=== PATIENT | female | born 1950 | race Asian ===

== ENCOUNTER 2020-06-21 00:32 | Inpatient (IN) | payer MEDICARE, OTHER ==
[~2020-06-21] VITALS: Ht 162.6 cm; Wt 68.0 kg
[2020-06-21 09:00] VITALS: BP 160/88
--- NOTE | 2020-06-21 09:00 | NUR ---
GPS/RN PT RECEIVED DIRECT ADMIT ON 515 HOLD FOR GD. AMBULATORY BRITISH/TAGALOG SPEAKING. DISORGANIZED AND CONFUSED/POOR HISTORIAN. ORIGINALLY FROM [facility] APART[facility]. PROPERTY CHECKED FOR CONTRABAND. NO SI OR HI AT THE TIME OF ADMISSION.VSS. SKIN CLEAR. ADMITTING ORDERS FROM DR MORRISON RECEIVED AND CARRIED OUT.
[2020-06-21] MEDS ORDERED: BLOOD SUGAR DIAGNOSTIC 1 EACH STRIP IN ONE (09:30)
[2020-06-21] MEDS ORDERED: MAGNESIUM HYDROXIDE 30 ML UDC PO PRN (09:30)
[2020-06-21] MEDS ORDERED: MAG HYDROX/AL HYDROX/SIMETH 30 ML UDC PO PRN (09:30)
[2020-06-21] MEDS ORDERED: ACETAMINOPHEN 325 MG TABLET PO PRN (09:30)
[2020-06-21] MEDS ORDERED: RISP3TAB14 PO (09:41)
[2020-06-21] MEDS ORDERED: MIRT15TA7 PO (09:41)
[2020-06-21] MEDS ORDERED: CHOL10002 PO (09:41)
[2020-06-21] MEDS ORDERED: DICL100G34 TP (09:41)
[2020-06-21] MEDS ORDERED: CLON1TAB12 PO (09:41)
[2020-06-21] MEDS ORDERED: ASPI-1420 PO (09:41)
[2020-06-21] MEDS ORDERED: SITA100T PO (09:41)
[2020-06-21] MEDS ORDERED: IRBE150T28 PO (09:41)
[2020-06-21] MEDS ORDERED: MECL-182 PO (09:41)
[2020-06-21] MEDS ORDERED: GLIP5TAB13 PO (09:41)
[2020-06-21] MEDS ORDERED: LEVO88TA5 PO (09:41)
[2020-06-21] MEDS ORDERED: METF-442 PO (09:41)
[2020-06-21] MEDS ORDERED: DIVA-78 PO (09:41)
[2020-06-21] MEDS ORDERED: AMLO10TA7 PO (09:41)
[2020-06-21] MEDS ORDERED: BENZ0.5T43 PO (09:41)
--- NOTE | 2020-06-21 10:10 | NUR ---
GPS/RN DR MCMILLAN MADE AWARE OF NEW ADMISSION. MEDS ARE READY TO RECONCILE
[2020-06-21 16:00] VITALS: BP 146/77
[2020-06-21] MEDS: risperiDONE 1 MG TABLET PO SCH (16:42)
[2020-06-21] MEDS: BENZTROPINE MESYLATE (1 MG) 1 MG TABLET PO SCH (16:42)
[2020-06-21] MEDS: LORAZEPAM 0.5 MG TABLET PO PRN (16:42)
[2020-06-21] MEDS ORDERED: DEXTROSE 50%-WATER 50 ML DISP.SYRIN IV PRN (18:30)
[2020-06-21 20:16] VITALS: BP 166/91
[2020-06-21] MEDS: DIVALPROEX SODIUM 500 MG TABLET.DR PO SCH (21:48)
[2020-06-21] MEDS: BLOOD SUGAR DIAGNOSTIC 1 EACH STRIP IN SCH (22:15)
[2020-06-21] MEDS: INSULIN REGULAR, HUMAN 100 UNIT/ML 3 ML VIAL SQ PRN (22:18)
[2020-06-21] MEDS: TEMAZEPAM 7.5 MG CAPSULE PO PRN (23:03)
--- NOTE | 2020-06-21 23:12 | NUR ---
GPS RN NOTE: BLOOD SUGAR 204MG/DL AT 2200. 4 UNITS OF REGULAR INSULIN ADMINISTERED PER SLIDING SCALE ORDER. WILL CONTINUE TO MONITOR.
--- NOTE | 2020-06-21 23:14 | NUR ---
GPS RN NOTE: PT REQUESTED FOR SLEEPING MEDICATION DUE TO INSOMNIA. RESTORIL 7.5MG 1 TAB GIVEN PO ORDERED AT 2303. WILL CONTINUE TO MONITOR
[2020-06-22] MEDS: BLOOD SUGAR DIAGNOSTIC 1 EACH STRIP IN SCH (07:37)
[2020-06-22] MEDS: INSULIN REGULAR, HUMAN 100 UNIT/ML 3 ML VIAL SQ PRN ×3 (07:43→21:47)
[2020-06-22 08:00] VITALS: BP 155/87
[2020-06-22] MEDS: LEVOTHYROXINE SODIUM 88 MCG TABLET PO SCH (08:06)
[2020-06-22] MEDS: risperiDONE 1 MG TABLET PO SCH ×2 (08:07→16:57)
[2020-06-22] MEDS: DIVALPROEX SODIUM 500 MG TABLET.DR PO SCH ×2 (08:07→21:37)
[2020-06-22] MEDS: BENZTROPINE MESYLATE (1 MG) 1 MG TABLET PO SCH ×2 (08:07→16:57)
[2020-06-22] MEDS: METFORMIN 500 MG TABLET PO SCH ×2 (08:11→16:57)
[2020-06-22] MEDS: ASPIRIN EC 81 MG TABLET.DR PO SCH (08:11)
[2020-06-22] MEDS: glipiZIDE 5 MG TABLET PO SCH ×2 (08:11→16:57)
[2020-06-22] MEDS: LOSARTAN POTASSIUM 50 MG TABLET PO SCH (08:12)
[2020-06-22] MEDS: AMLODIPINE BESYLATE 10 MG TABLET PO SCH (08:12)
[2020-06-22] MEDS: LINAGLIPTIN 5 MG TABLET PO SCH (08:12)
[2020-06-22] MEDS ORDERED: DICLOFENAC TOPICAL 100 GM GEL..GM. TP SCH (09:00)
[2020-06-22] MEDS ORDERED: BENZTROPINE MESYLATE (1 MG) 1 MG TABLET PO SCH (09:00)
--- NOTE | 2020-06-22 09:00 | NUR ---
RN NOTE-PT NEEDY INTRUSIVE BLUNTED AFFECT SLOW TO SPEAK INITIATES BUT HAS DIFFICULTY FOLLOWING CONVERSATION DISORGANIZED AND WARY. DENIES SI HI AH VH PO INTAKE GOOD MED COMPLIANT
[2020-06-22 09:16] LABS: ALBUMIN 3.6 g/dL (3.4-5.0); BILIRUBIN,TOTAL 0.4 mg/dL (0.2-1.0); CALCIUM, SERUM 8.6 mg/dL (8.5-10.1); CREATININE 0.8 mg/dL (0.6-1.3); POTASSIUM 4.3 mmol/L (3.5-5.1); TOTAL PROTEIN, SERUM 6.6 g/dL (6.4-8.2)
[2020-06-22 09:23] LABS: THYROID STIMULATING HORMONE 6.203 uIU/mL (0.358-3.74)
[2020-06-22] MEDS: BLOOD SUGAR DIAGNOSTIC 1 EACH STRIP VI SCH ×3 (11:51→21:41)
[2020-06-22] MEDS ORDERED: DEXTROSE 50%-WATER 50 ML DISP.SYRIN IV PRN (12:00)
[2020-06-22 15:48] VITALS: BP 117/73
[2020-06-22 19:50] VITALS: BP 152/76
[2020-06-22] MEDS: TEMAZEPAM 7.5 MG CAPSULE PO PRN (21:38)
--- NOTE | 2020-06-22 21:49 | NUR ---
Pt c/o insomnia. Least restrictive measures ineffective. Restoril 7.5 mg po prn given as ordered. Will continue to monitor.
--- NOTE | 2020-06-22 22:43 | NUR ---
Post 1 hr Restoril effective. Pt asleep in bed easy to arouse.
[2020-06-23] MEDS: BLOOD SUGAR DIAGNOSTIC 1 EACH STRIP VI SCH ×4 (07:34→21:28)
[2020-06-23] MEDS: LEVOTHYROXINE SODIUM 88 MCG TABLET PO SCH (07:34)
[2020-06-23] MEDS: INSULIN REGULAR, HUMAN 100 UNIT/ML 3 ML VIAL SQ PRN ×2 (07:38→11:48)
[2020-06-23 08:00] VITALS: BP 139/70
[2020-06-23] MEDS: LINAGLIPTIN 5 MG TABLET PO SCH (08:16)
[2020-06-23] MEDS: METFORMIN 500 MG TABLET PO SCH ×2 (08:16→16:28)
[2020-06-23] MEDS: risperiDONE 1 MG TABLET PO SCH ×2 (08:16→16:28)
[2020-06-23] MEDS: glipiZIDE 5 MG TABLET PO SCH ×2 (08:16→16:28)
[2020-06-23] MEDS: AMLODIPINE BESYLATE 10 MG TABLET PO SCH (08:16)
[2020-06-23] MEDS: BENZTROPINE MESYLATE (1 MG) 1 MG TABLET PO SCH ×2 (08:16→16:27)
[2020-06-23] MEDS: DIVALPROEX SODIUM 500 MG TABLET.DR PO SCH ×2 (08:16→21:28)
[2020-06-23] MEDS: ASPIRIN EC 81 MG TABLET.DR PO SCH (08:16)
[2020-06-23] MEDS: LOSARTAN POTASSIUM 50 MG TABLET PO SCH (08:17)
--- NOTE | 2020-06-23 09:00 | NUR ---
RN NOTE- PT FEARFUL, PARANOIA INCREASED BLUNTED AFFECT SLOW TO SPEAK INITIATES BUT HAS DIFFICULTY FOLLOWING CONVERSATION DISORGANIZED AND WARY. DENIES SI HI AH VH PO INTAKE GOOD MED COMPLIANT DR MORRISON NOTIFIED AND SAW PT
--- NOTE | 2020-06-23 14:26 | NUR ---
Family Contact: SW called the pts sister, Rolanda ([phone]), who stated that the pt's other sister, Marta. She stated that she would give the SW's number.
--- NOTE | 2020-06-23 14:42 | NUR ---
Family Contact: Pts sister, Marta Fernandez ([phone]), called the SW and stated that she wanted an update regarding how the pt is doing. SW stated that the pt appears to be paranoid and needs to become stable with medications. Pts sister stated that she does not feel comfortable with the pt returning home when she lives by herself. SW stated that the SW can speak to the MD and plan for a discharge to a SNF if the family and the pt agree.
--- NOTE | 2020-06-23 15:10 | NUR ---
Group Note: SW invited patient to participate in group therapy to discuss the topic of Problem Solving. Patient did not want to engage at this time and was resting in bed.
[2020-06-23 16:00] VITALS: BP 150/82
--- NOTE | 2020-06-23 16:07 | NUR ---
Initial Discharge Plan: Pt currently resides in her apartment alone located at [address] [place] [address]; ([phone]). Per pt, she would like to return to her home. Per pts sister, Marta ([phone]), the family is considering a SNF. SW will work with the pt and the MD regarding appropriate discharge planning. SW will form a safe and proper discharge.
[2020-06-23] MEDS: *INSULIN REGULAR(HUMULIN R)HUM 100 UNIT/ML VIAL SQ PRN ×2 (17:25→21:32)
[2020-06-23 19:48] VITALS: BP 151/60
[2020-06-23] MEDS: LORAZEPAM 0.5 MG TABLET PO PRN (20:29)
--- NOTE | 2020-06-23 20:33 | NUR ---
RN NOTES: ANXIETY/AGITATION PATIENT IS AGITATED,PACING IN HALLWAY ANXIOUS, PARANOID,RESTLESS, DELUSIONAL HYPERVERBAL AT THIS TIME, . NOT FOLLOWING ANY REDIRECTIONS ,PRN ATIVAN 0.5 MG , PO GIVEN, WILL CONTINUE TO MONITOR.
[2020-06-23 22:00] VITALS: BP 130/65
[2020-06-24] MEDS: BLOOD SUGAR DIAGNOSTIC 1 EACH STRIP VI SCH ×4 (07:17→23:13)
[2020-06-24] MEDS: INSULIN REGULAR, HUMAN 100 UNIT/ML 3 ML VIAL SQ PRN ×2 (07:20→17:36)
[2020-06-24] MEDS: LEVOTHYROXINE SODIUM 88 MCG TABLET PO SCH (07:41)
[2020-06-24 08:00] VITALS: BP 148/76
[2020-06-24] MEDS: METFORMIN 500 MG TABLET PO SCH ×2 (08:49→16:12)
[2020-06-24] MEDS: LOSARTAN POTASSIUM 50 MG TABLET PO SCH (08:49)
[2020-06-24] MEDS: LINAGLIPTIN 5 MG TABLET PO SCH (08:49)
[2020-06-24] MEDS: ASPIRIN EC 81 MG TABLET.DR PO SCH (08:49)
[2020-06-24] MEDS: BENZTROPINE MESYLATE (1 MG) 1 MG TABLET PO SCH ×2 (08:49→16:12)
[2020-06-24] MEDS: DIVALPROEX SODIUM 500 MG TABLET.DR PO SCH ×2 (08:49→20:43)
[2020-06-24] MEDS: glipiZIDE 5 MG TABLET PO SCH ×2 (08:50→16:12)
[2020-06-24] MEDS: AMLODIPINE BESYLATE 10 MG TABLET PO SCH (08:50)
[2020-06-24] MEDS: risperiDONE 1 MG TABLET PO SCH ×2 (08:50→16:12)
--- NOTE | 2020-06-24 09:00 | NUR ---
RN NOTE- PT FEARFUL, PARANOID WANDERING UNIT REQUESTING PHONE . CONFUSED. NEEDY PO INTAKE GOOD MED COMPLIANT.
[2020-06-24] MEDS: *INSULIN REGULAR(HUMULIN R)HUM 100 UNIT/ML VIAL SQ PRN (11:56)
--- NOTE | 2020-06-24 15:36 | NUR ---
Group Note: SW encouraged pt to attend group therapy on 06/24/20 on the topic of discharge planning. Pt refused to attend but was willing to participate in an individual session. Pt stated that she wanted to return to her home but the SW stated that a assisted would be a much safer option for her. Pt became excited and stated that she would want to be discharged to a SNF. SW stated that she will keep her updated.
[2020-06-24 16:00] VITALS: BP 129/70
[2020-06-24 19:56] VITALS: BP 147/81
[2020-06-25 07:33] LABS: BASOPHILS % (AUTO) 0.1 % (0.0-2.0); EOSINOPHILS % (AUTO) 2.6 % (0.0-6.0); HEMATOCRIT 35 % (33-45); HEMOGLOBIN 11.7 g/dL (11.5-14.8); LYMPHOCYTES # (AUTO) 0.7 /CMM (0.8-4.8); LYMPHOCYTES % (AUTO) 17.8 % (20.0-44.0); MEAN CORPUSCULAR HGB CONC 34 g/dl (31.0-36.0); MEAN CORPUSCULAR VOLUME 88 fL (82-100); MONOCYTES # (AUTO) 0.3 /CMM (0.1-1.30); MONOCYTES % (AUTO) 7.5 % (2.0-12.0); NEUTROPHILS # (AUTO) 2.8 /CMM (1.8-8.9); PLATELET COUNT (AUTO) 109 /CMM (150-450); RED BLOOD CELL COUNT(AUTO) 3.91 MIL/uL (4.0-5.2); WHITE BLOOD COUNT (AUTO) 3.9 K/uL (4.3-11.0)
[2020-06-25 08:00] VITALS: BP 153/84
[2020-06-25] MEDS: BLOOD SUGAR DIAGNOSTIC 1 EACH STRIP VI SCH (08:19)
[2020-06-25] MEDS: INSULIN REGULAR, HUMAN 100 UNIT/ML 3 ML VIAL SQ PRN ×2 (08:24→13:09)
[2020-06-25] MEDS: METFORMIN 500 MG TABLET PO SCH ×2 (09:20→17:47)
[2020-06-25] MEDS: glipiZIDE 5 MG TABLET PO SCH ×2 (09:21→17:48)
[2020-06-25] MEDS: AMLODIPINE BESYLATE 10 MG TABLET PO SCH (09:21)
[2020-06-25] MEDS: BENZTROPINE MESYLATE (1 MG) 1 MG TABLET PO SCH ×2 (09:21→17:48)
[2020-06-25] MEDS: ASPIRIN EC 81 MG TABLET.DR PO SCH (09:21)
[2020-06-25] MEDS: LINAGLIPTIN 5 MG TABLET PO SCH (09:22)
[2020-06-25] MEDS: risperiDONE 1 MG TABLET PO SCH ×2 (09:22→17:47)
[2020-06-25] MEDS: DIVALPROEX SODIUM 500 MG TABLET.DR PO SCH ×2 (09:22→20:52)
[2020-06-25] MEDS: LOSARTAN POTASSIUM 50 MG TABLET PO SCH (09:22)
[2020-06-25] MEDS: LEVOTHYROXINE SODIUM 75 MCG TABLET PO SCH (09:23)
[2020-06-25] MEDS ORDERED: DEXTROSE 50%-WATER 50 ML DISP.SYRIN IV PRN (10:30)
--- NOTE | 2020-06-25 11:15 | NUR ---
Group Note: SW encouraged pt to participate in group on the topic of dealing with anxiety. Patient stated "the table is moving like I'm in a bus" and "the table is toxic". Patient presents delusional and paranoid. SW provided redirection and active listening.
[2020-06-25] MEDS: BLOOD SUGAR DIAGNOSTIC 1 EACH STRIP IN SCH ×3 (13:04→22:12)
[2020-06-25 16:00] VITALS: BP 129/63
--- NOTE | 2020-06-25 16:21 | NUR ---
SNF Referral: JUNAID faxed a referral to [facility] with attn to Goyo to the fax number: [phone].
[2020-06-25 19:27] VITALS: BP 152/92
[2020-06-25] MEDS: TEMAZEPAM 7.5 MG CAPSULE PO PRN (22:08)
[2020-06-26 08:00] VITALS: BP 148/91
[2020-06-26] MEDS: risperiDONE 1 MG TABLET PO SCH ×2 (08:33→17:23)
[2020-06-26] MEDS: BENZTROPINE MESYLATE (1 MG) 1 MG TABLET PO SCH ×2 (08:33→17:23)
[2020-06-26] MEDS: AMLODIPINE BESYLATE 10 MG TABLET PO SCH (08:33)
[2020-06-26] MEDS: METFORMIN 500 MG TABLET PO SCH ×2 (08:34→17:23)
[2020-06-26] MEDS: LINAGLIPTIN 5 MG TABLET PO SCH (08:35)
[2020-06-26] MEDS: LEVOTHYROXINE SODIUM 75 MCG TABLET PO SCH (08:35)
[2020-06-26] MEDS: ASPIRIN EC 81 MG TABLET.DR PO SCH (08:35)
[2020-06-26] MEDS: glipiZIDE 5 MG TABLET PO SCH ×2 (08:35→17:23)
[2020-06-26] MEDS: DIVALPROEX SODIUM 500 MG TABLET.DR PO SCH ×2 (08:35→21:05)
[2020-06-26] MEDS: LOSARTAN POTASSIUM 50 MG TABLET PO SCH (08:35)
[2020-06-26] MEDS: BLOOD SUGAR DIAGNOSTIC 1 EACH STRIP IN SCH ×4 (08:36→21:13)
--- NOTE | 2020-06-26 08:51 | NUR ---
SNF Contact: JUNAID contacted Goyo ([phone]) from [facility] and he stated that the pt was accepted to their facility. JUNAID stated that she will be discharged on Tuesday.
[2020-06-26] MEDS: INSULIN REGULAR, HUMAN 100 UNIT/ML 3 ML VIAL SQ PRN ×2 (09:06→12:19)
--- NOTE | 2020-06-26 09:07 | NUR ---
Family Contact: SW called the pts sister, Marta Fernandez ([phone]), and informed her that the pt was accepted to a SNF. Pts sister stated that she wants the placement to be temporary and SW stated that it would be. SW stated that she also spoke to the pt and she agreed to the SNF.
--- NOTE | 2020-06-26 15:00 | NUR ---
RN-CO: Patient was in the hallway, trying to borrow phone several times in the nursing station. She was even knocking several times in the social work instructor's door. Then suddenly she dropped her self purposely on the floor. RN who was charting in the hallway noticed that she is about to fall so she catches her. Most of the staff run towards the incident and tried to put her in the mick chair and she made herself rigid while she is talking with eyes open stating " I want to talk to my sister." DR Bradley was notified immediately, and ordered to monitor. Dr Donnie Garcia was paged and awaiting to call back.
[2020-06-26 16:00] VITALS: BP 112/66
[2020-06-26 16:15] VITALS: BP 144/72
--- NOTE | 2020-06-26 16:33 | NUR ---
RN-CO: DR ACOSTA ORDERED CT OF HEAD W/O CONTRAST.
--- NOTE | 2020-06-26 16:46 | NUR ---
RN-CO: ring sewer made aware.
--- NOTE | 2020-06-26 16:51 | NUR ---
rn notes dialed family sister name Rolanda xAnnie [phone], but was phone disconnected.
[2020-06-26] MEDS: LORAZEPAM 0.5 MG TABLET PO PRN (18:19)
--- NOTE | 2020-06-26 18:19 | NUR ---
rn notes administered ativan 0.5 mg po prn for anxiety, v/s taken bp- 142/59, p97.
[2020-06-26 18:27] VITALS: BP 142/59
[2020-06-26 18:28] VITALS: BP 160/77
[2020-06-26 20:07] VITALS: BP 160/74
--- NOTE | 2020-06-26 21:14 | NUR ---
GPS RN NOTE: BLOOD SUGAR AT 2109 102MG/DL. NO INSULIN COVERAGE NEEDED.
[2020-06-26] MEDS: TEMAZEPAM 7.5 MG CAPSULE PO PRN (22:04)
--- NOTE | 2020-06-26 22:21 | NUR ---
GPS RN NOTES: AT 2200 PT ASKED FOR SLEEP MEDICATION DUE TO INSOMNIA. RESTORIL 7.5MG 1 CAP GIVEN PO PRN AT 2204. WILL CONTINUE TO MONITOR.
[2020-06-27] MEDS: BLOOD SUGAR DIAGNOSTIC 1 EACH STRIP IN SCH ×4 (07:41→21:34)
--- NOTE | 2020-06-27 07:42 | NUR ---
RN NOTES PATIENT REFUSED INSULIN, EXPLAINED THE RISKS AND BENEFITS BUT PATIENT STILL REFUSED. PER PATIENT,"I JUST FINISHED EATING BREAKFAST THAT'S WHY IT IS HIGH, I DON'T NEED IT". WILL CONTINUE TO MONITOR.
[2020-06-27] MEDS: METFORMIN 500 MG TABLET PO SCH ×2 (08:13→16:24)
[2020-06-27] MEDS: ASPIRIN EC 81 MG TABLET.DR PO SCH (08:13)
[2020-06-27] MEDS: BENZTROPINE MESYLATE (1 MG) 1 MG TABLET PO SCH ×2 (08:13→16:25)
[2020-06-27] MEDS: LINAGLIPTIN 5 MG TABLET PO SCH (08:13)
[2020-06-27] MEDS: glipiZIDE 5 MG TABLET PO SCH ×2 (08:13→16:25)
[2020-06-27] MEDS: LOSARTAN POTASSIUM 50 MG TABLET PO SCH (08:14)
[2020-06-27] MEDS: DIVALPROEX SODIUM 500 MG TABLET.DR PO SCH ×2 (08:14→21:26)
[2020-06-27] MEDS: LEVOTHYROXINE SODIUM 75 MCG TABLET PO SCH (08:15)
[2020-06-27] MEDS: AMLODIPINE BESYLATE 10 MG TABLET PO SCH (08:15)
[2020-06-27] MEDS: risperiDONE 1 MG TABLET PO SCH ×2 (08:15→16:25)
[2020-06-27 08:30] VITALS: BP 143/82
[2020-06-27] MEDS: INSULIN REGULAR, HUMAN 100 UNIT/ML 3 ML VIAL SQ PRN (11:38)
[2020-06-27 16:00] VITALS: BP 134/67
[2020-06-27 19:38] VITALS: BP 135/61
[2020-06-28] MEDS: BLOOD SUGAR DIAGNOSTIC 1 EACH STRIP IN SCH ×4 (07:30→21:40)
--- NOTE | 2020-06-28 07:40 | NUR ---
GPS/RN pt refused accucheck offered x3
[2020-06-28 08:00] VITALS: BP 143/75
[2020-06-28] MEDS: MECLIZINE HCL 25 MG TABLET PO PRN ×2 (08:37→17:18)
[2020-06-28] MEDS: glipiZIDE 5 MG TABLET PO SCH ×2 (08:38→17:18)
[2020-06-28] MEDS: ASPIRIN EC 81 MG TABLET.DR PO SCH (08:38)
[2020-06-28] MEDS: LEVOTHYROXINE SODIUM 75 MCG TABLET PO SCH (08:38)
[2020-06-28] MEDS: BENZTROPINE MESYLATE (1 MG) 1 MG TABLET PO SCH ×2 (08:38→17:18)
[2020-06-28] MEDS: risperiDONE 1 MG TABLET PO SCH ×2 (08:38→20:12)
[2020-06-28] MEDS: DIVALPROEX SODIUM 500 MG TABLET.DR PO SCH (08:38)
[2020-06-28] MEDS: LOSARTAN POTASSIUM 50 MG TABLET PO SCH (08:38)
[2020-06-28] MEDS: METFORMIN 500 MG TABLET PO SCH ×2 (08:38→17:18)
[2020-06-28] MEDS: LINAGLIPTIN 5 MG TABLET PO SCH (08:38)
[2020-06-28] MEDS: AMLODIPINE BESYLATE 10 MG TABLET PO SCH (08:39)
--- NOTE | 2020-06-28 10:57 | NUR ---
At about 1030 noise heard at the hallway and pt. was found lying in the floor. As per report from other patient, this pt. was standing in the hallway and falling down backward. Staffs assisted the pt. to the gerichair and pt. was awake. Body check done and a bump noted on the back of the head. V/S taken BP 126/68, NY 112, RR 18, temp 97.4% and oxygen sat 95% Per. pt. she was dizzy and hit her head. V/S taken BP 126/68, NY 112, RR 18, temp 97.4% and oxygen sat 95%. Dr. Ivy covering for Dr. Bradley in the unit and made aware. Golf Instructor and arranging funeral director made aware. Called the daughter Rolanda [place] and left a message.
--- NOTE | 2020-06-28 12:08 | NUR ---
GPS/RN BRANDON RAG ROOM SUPERVISOR CONTACTED VIA [employer] AND MADE AWARE OF PT ABNORMAL ECG. DR OCHOA MADE DR MORALES AWARE OF ABNORMAL ECG PER BRANDON REQUEST. BRANDON ALVARENGA WILL SEE THE PT PERSONALLY.
--- NOTE | 2020-06-28 12:15 | NUR ---
GPS/RN pt refused insulin coverage offered x3
--- NOTE | 2020-06-28 12:17 | NUR ---
GPS/RN BRANDON SENIOR MAINFRAME DEVELOPER IS IN THE UNIT AND ASSESSING THE PATIENT.
[2020-06-28 12:44] LABS: CALCIUM, SERUM 9.1 mg/dL (8.5-10.1); CARBON DIOXIDE 29 mmol/L (21-32); CHLORIDE 90 mmol/L (98-107); CREATININE 0.7 mg/dL (0.6-1.3); GLUCOSE 206 mg/dL (74-106); POTASSIUM 4.5 mmol/L (3.5-5.1); SODIUM SERUM 126 mmol/L (136-145); UREA NITROGEN, BLOOD 14 mg/dL (7-18)
[2020-06-28 12:58] LABS: BASOPHILS % (AUTO) 0.2 % (0.0-2.0); EOSINOPHILS % (AUTO) 2.6 % (0.0-6.0); HEMATOCRIT 39 % (33-45); HEMOGLOBIN 13.1 g/dL (11.5-14.8); LYMPHOCYTES # (AUTO) 0.4 /CMM (0.8-4.8); LYMPHOCYTES % (AUTO) 6.2 % (20.0-44.0); MEAN CORPUSCULAR HGB CONC 34 g/dl (31.0-36.0); MEAN CORPUSCULAR VOLUME 87 fL (82-100); MONOCYTES # (AUTO) 0.5 /CMM (0.1-1.30); MONOCYTES % (AUTO) 7.8 % (2.0-12.0); NEUTROPHILS # (AUTO) 5.1 /CMM (1.8-8.9); NEUTROPHILS % (AUTO) 83.2 % (43.0-81.0); PLATELET COUNT (AUTO) 115 /CMM (150-450); RED BLOOD CELL COUNT(AUTO) 4.48 MIL/uL (4.0-5.2); WHITE BLOOD COUNT (AUTO) 6.1 K/uL (4.3-11.0)
--- NOTE | 2020-06-28 15:18 | NUR ---
GPS/RN PT IS AMBULATORY WITH STANDBY ASSIST IN THE HALLWAY NO C/O CHEST PAIN REPORTED. BRANDON PUBLIC AFFAIRS MANAGER CONTACTED [facility]IA [employer] FOR THE ORDERS.
--- NOTE | 2020-06-28 15:48 | NUR ---
GPS/RN BRANDON UTILITY MAINTENANCE WORKER REVIEWED THE LABS AND ORDERED SITTER 1:1 FOR SAFETY. SHAREPOINT ARCHITECT ALEC NOTIFIED.
[2020-06-28 16:00] VITALS: BP 129/71
--- NOTE | 2020-06-28 18:05 | NUR ---
GPS/RN ACCUCHECK DONE FOR 1729 . PT REFUSED INSULIN COVERAGE. OFFERED X3
[2020-06-28 20:21] VITALS: BP 146/75
--- NOTE | 2020-06-28 21:41 | NUR ---
GPS RN NOTE: PT. REFUSED INSULIN COVERAGE AFTER ACCUCHECK. EXPLAINED RISKS AND BENEFITS. OFFERED 3 TIMES AND PT. STILL REFUSED. STATES " I DON'T WANT INSULIN." WILL CONTINUE TO MONITOR FOR SAFETY AND BEHAVIOR.
[2020-06-28] MEDS ORDERED: DIVALPROEX SODIUM 500 MG TABLET.DR PO SCH (22:00)
[2020-06-29] MEDS: LEVOTHYROXINE SODIUM 75 MCG TABLET PO SCH (07:40)
[2020-06-29] MEDS: DIVALPROEX SODIUM 250 MG TABLET.DR PO SCH ×2 (07:40→12:14)
[2020-06-29] MEDS: BLOOD SUGAR DIAGNOSTIC 1 EACH STRIP IN SCH ×4 (07:40→22:35)
[2020-06-29 08:00] VITALS: BP 153/89
[2020-06-29] MEDS: METFORMIN 500 MG TABLET PO SCH ×2 (08:15→16:47)
[2020-06-29] MEDS: BENZTROPINE MESYLATE (1 MG) 1 MG TABLET PO SCH ×2 (08:17→16:47)
[2020-06-29] MEDS: risperiDONE 1 MG TABLET PO SCH ×3 (08:17→20:26)
[2020-06-29] MEDS: ASPIRIN EC 81 MG TABLET.DR PO SCH (08:17)
[2020-06-29] MEDS: LINAGLIPTIN 5 MG TABLET PO SCH (08:18)
[2020-06-29] MEDS: glipiZIDE 5 MG TABLET PO SCH ×2 (08:18→16:47)
[2020-06-29] MEDS: AMLODIPINE BESYLATE 10 MG TABLET PO SCH (08:18)
[2020-06-29] MEDS: LOSARTAN POTASSIUM 50 MG TABLET PO SCH (08:18)
[2020-06-29] MEDS: LORAZEPAM 0.5 MG TABLET PO PRN ×2 (08:56→15:47)
--- NOTE | 2020-06-29 08:56 | NUR ---
RN NOTE- PT REFUSED SSI COVERAGE. ACCUCHECK 138. PT IRRITABLE NOW AND TRYING TO WALK AND WAS PLACED IN ALEKSANDAR CHAIR. ATTEMPTING TO GET OUT. ATIVAN 0.5 MG GIVEN . MONITORING SAFETY
[2020-06-29 08:59] LABS: ALBUMIN 3.4 g/dL (3.4-5.0); BILIRUBIN,TOTAL 0.3 mg/dL (0.2-1.0); CALCIUM, SERUM 8.9 mg/dL (8.5-10.1); CREATININE 0.6 mg/dL (0.6-1.3); MAGNESIUM 1.7 mg/dL (1.8-2.4); POTASSIUM 4.6 mmol/L (3.5-5.1); TOTAL PROTEIN, SERUM 6.5 g/dL (6.4-8.2)
--- NOTE | 2020-06-29 09:00 | NUR ---
RN NOTE- PT CONFUSED ANXIOUS TRYING TO GET OUT OF ALEKSANDAR CHAIR UNASSISTED MEDICATIONB COMPLIANT THIS MORNING PO INTAKE FAIR REORIENTED AND REDIRECTED PRN
[2020-06-29 09:04] LABS: THYROID STIMULATING HORMONE 3.228 uIU/mL (0.358-3.74)
[2020-06-29 09:09] LABS: BASOPHILS % (AUTO) 0.4 % (0.0-2.0); EOSINOPHILS % (AUTO) 3.7 % (0.0-6.0); HEMATOCRIT 35 % (33-45); HEMOGLOBIN 11.9 g/dL (11.5-14.8); LYMPHOCYTES # (AUTO) 0.6 /CMM (0.8-4.8); LYMPHOCYTES % (AUTO) 12.3 % (20.0-44.0); MEAN CORPUSCULAR HGB CONC 34 g/dl (31.0-36.0); MEAN CORPUSCULAR VOLUME 87 fL (82-100); MONOCYTES # (AUTO) 0.6 /CMM (0.1-1.30); MONOCYTES % (AUTO) 12.8 % (2.0-12.0); NEUTROPHILS # (AUTO) 3.5 /CMM (1.8-8.9); NEUTROPHILS % (AUTO) 70.8 % (43.0-81.0); PLATELET COUNT (AUTO) 116 /CMM (150-450); RED BLOOD CELL COUNT(AUTO) 4.01 MIL/uL (4.0-5.2)
[2020-06-29] MEDS ORDERED: Magnesium 1GM/D5W 100ML PREMIX 100 ML IV SCH ×2 (09:41→10:00)
[2020-06-29] MEDS ORDERED: MAGNESIUM OXIDE 400 MG TABLET PO ONE (10:00)
[2020-06-29] MEDS: INSULIN REGULAR, HUMAN 100 UNIT/ML 3 ML VIAL SQ PRN (12:26)
--- NOTE | 2020-06-29 15:47 | NUR ---
RN NOTE- PT BANGING ON TABLES AND BECOMING AGITATED. ATIVAN 0.5 MG GIVEN
[2020-06-29 15:49] VITALS: BP 130/70
[2020-06-29 20:00] VITALS: BP_SYST 141; BP_SYST 146; BP_DIAS 65; BP_DIAS 71
--- NOTE | 2020-06-29 23:00 | NUR ---
GPS RN NOTE PTS BLOOD SUGAR WAS 99, NO COVERAGE NEEDED PER SLIDING SCALE, WILL CONTINUE TO MONITOR Q15 MIN FOR SAFETY AND BEHAVIOR
[2020-06-30] MEDS: INSULIN REGULAR, HUMAN 100 UNIT/ML 3 ML VIAL SQ PRN ×3 (07:29→17:39)
[2020-06-30] MEDS: BLOOD SUGAR DIAGNOSTIC 1 EACH STRIP IN SCH ×4 (07:31→21:28)
[2020-06-30] MEDS: LEVOTHYROXINE SODIUM 75 MCG TABLET PO SCH ×2 (07:56→08:43)
[2020-06-30 08:00] VITALS: BP 138/74
[2020-06-30 08:07] LABS: CALCIUM, SERUM 9.2 mg/dL (8.5-10.1); CREATININE 0.6 mg/dL (0.6-1.3); MAGNESIUM 1.9 mg/dL (1.8-2.4); POTASSIUM 4.6 mmol/L (3.5-5.1)
[2020-06-30] MEDS: ASPIRIN EC 81 MG TABLET.DR PO SCH (08:42)
[2020-06-30] MEDS: METFORMIN 500 MG TABLET PO SCH ×2 (08:42→16:42)
[2020-06-30] MEDS: AMLODIPINE BESYLATE 10 MG TABLET PO SCH (08:43)
[2020-06-30] MEDS: LOSARTAN POTASSIUM 50 MG TABLET PO SCH (08:43)
[2020-06-30] MEDS: LINAGLIPTIN 5 MG TABLET PO SCH (08:43)
[2020-06-30] MEDS: BENZTROPINE MESYLATE (1 MG) 1 MG TABLET PO SCH ×2 (08:43→16:42)
[2020-06-30] MEDS: glipiZIDE 5 MG TABLET PO SCH ×2 (08:43→16:42)
[2020-06-30] MEDS: DIVALPROEX SODIUM 250 MG TABLET.DR PO SCH ×2 (08:44→12:12)
[2020-06-30] MEDS: risperiDONE 1 MG TABLET PO SCH ×3 (08:44→20:16)
[2020-06-30 12:00] LABS: BASOPHILS % (AUTO) 0.5 % (0.0-2.0); EOSINOPHILS % (AUTO) 4.1 % (0.0-6.0); HEMATOCRIT 36 % (33-45); HEMOGLOBIN 12.2 g/dL (11.5-14.8); LYMPHOCYTES # (AUTO) 0.8 /CMM (0.8-4.8); LYMPHOCYTES % (AUTO) 15.3 % (20.0-44.0); MEAN CORPUSCULAR HGB CONC 34 g/dl (31.0-36.0); MEAN CORPUSCULAR VOLUME 89 fL (82-100); MONOCYTES # (AUTO) 0.7 /CMM (0.1-1.30); MONOCYTES % (AUTO) 14.1 % (2.0-12.0); NEUTROPHILS # (AUTO) 3.4 /CMM (1.8-8.9); PLATELET COUNT (AUTO) 114 /CMM (150-450); RED BLOOD CELL COUNT(AUTO) 4.08 MIL/uL (4.0-5.2); WHITE BLOOD COUNT (AUTO) 5.2 K/uL (4.3-11.0)
[2020-06-30 12:14] LABS: ALBUMIN 3.5 g/dL (3.4-5.0); BILIRUBIN,DIRECT 0.1 mg/dL (0.0-0.2); BILIRUBIN,TOTAL 0.3 mg/dL (0.2-1.0); MAGNESIUM 1.9 mg/dL (1.8-2.4); TOTAL PROTEIN, SERUM 6.6 g/dL (6.4-8.2)
--- NOTE | 2020-06-30 15:55 | NUR ---
Family Contact: SW called the pts sister, Marta Fernandez ([phone]), and informed her that the pt will be discharged tomorrow to [facility].
[2020-06-30 16:00] VITALS: BP 135/71
[2020-06-30 16:09] LABS: BAND % (MANUAL) 7 % (0.0-5.0); EOSINOPHILS % (MANUAL) 4 % (0-4); LYMPHOCYTES % (MANUAL) 17 % (16-48); METAMYELOCYTES % 1 % (0-0); MONOCYTES % (MANUAL) 14 % (0-11.0); NEUTROPHILS % (MANUAL) 57 (42-76)
[2020-06-30 19:33] VITALS: BP 121/64
[2020-06-30] MEDS: LORAZEPAM 0.5 MG TABLET PO PRN (22:39)
--- NOTE | 2020-06-30 22:41 | NUR ---
GPS-RN NOTE: ANXIETY PATIENT IS ANXIOUS AND RESTLESS. ADMINISTERED ATIVAN 0.5MG PO ORDERED. WILL CONTINUE TO MONITOR FOR SAFETY.
[2020-07-01] MEDS: BLOOD SUGAR DIAGNOSTIC 1 EACH STRIP IN SCH ×4 (07:31→22:00)
[2020-07-01] MEDS: INSULIN REGULAR, HUMAN 100 UNIT/ML 3 ML VIAL SQ PRN ×4 (07:32→21:57)
[2020-07-01 07:49] LABS: CALCIUM, SERUM 8.9 mg/dL (8.5-10.1); CREATININE 0.5 mg/dL (0.6-1.3); POTASSIUM 4.3 mmol/L (3.5-5.1)
[2020-07-01 08:00] VITALS: BP 126/76
[2020-07-01] MEDS: METFORMIN 500 MG TABLET PO SCH ×2 (08:16→16:55)
[2020-07-01] MEDS: BENZTROPINE MESYLATE (1 MG) 1 MG TABLET PO SCH ×2 (08:16→16:54)
[2020-07-01] MEDS: ASPIRIN EC 81 MG TABLET.DR PO SCH (08:17)
[2020-07-01] MEDS: risperiDONE 1 MG TABLET PO SCH ×3 (08:17→20:16)
[2020-07-01] MEDS: LINAGLIPTIN 5 MG TABLET PO SCH (08:17)
[2020-07-01] MEDS: glipiZIDE 5 MG TABLET PO SCH ×2 (08:17→16:55)
[2020-07-01] MEDS: LOSARTAN POTASSIUM 50 MG TABLET PO SCH (08:18)
[2020-07-01] MEDS: AMLODIPINE BESYLATE 10 MG TABLET PO SCH (08:18)
[2020-07-01] MEDS: LEVOTHYROXINE SODIUM 50 MCG TABLET PO SCH (08:39)
--- NOTE | 2020-07-01 11:30 | NUR ---
GPS RN NOTE: CALLED TO RADIOLOGY FOR EEG ORDER WAITING FOR TECH FROM OUTSIDE THE HOSPITAL DR MCMILLAN NOTIFIED OF ORDER EEG AND LAB RESULT NO NEW ORDERS AT THIS TIME.
--- NOTE | 2020-07-01 13:01 | NUR ---
MJCO: MADE A FOLLOW UP ON THE EEG AT 0730 AM AND 1107 AM.
--- NOTE | 2020-07-01 14:32 | NUR ---
RNEstherCO: CALLED SUPERVISOR SCOURING PADS MIKE [phone].
[2020-07-01 16:00] VITALS: BP 149/71
--- NOTE | 2020-07-01 17:30 | NUR ---
GPS RN NOTE: SPOKE TO REGARDING EEG RESULT PER MD SHE WILL CHECK ON IT IN TWO HOURS AND CALL US BACK. CN AWARE.
--- NOTE | 2020-07-01 18:54 | NUR ---
GPS RN NOTE: STILL WAITING ON DR SILVER TO CALL BACK REGARDING EEG RESULT WILL INDORSE TO INCOMING SHIFT RN TO FOLLOW UP
[2020-07-01 19:58] VITALS: BP 122/60
--- NOTE | 2020-07-01 20:00 | NUR ---
GPS RN NOTE: DR. DEL ROSARIO POSTPONED DISCHARGE ORDER. STATES TO HAVE PATIENT STAY OVERNIGHT AND WILL BE EVALUATED AND ASSESSED THE NEXT DAY.
[2020-07-01] MEDS: TEMAZEPAM 7.5 MG CAPSULE PO PRN (23:55)
--- NOTE | 2020-07-01 23:57 | NUR ---
GPS RN NOTE: INSOMNIA PT. C/O OF UNABLE TO SLEEP. ADMINISTERED RESTORIL 7.5 MG PO PRN ORDERED. WILL CONTINUE TO MONITOR FOR SAFETY AND BEHAVIOR
[2020-07-02 07:10] LABS: BASOPHILS % (AUTO) 0.2 % (0.0-2.0); EOSINOPHILS % (AUTO) 3.9 % (0.0-6.0); HEMATOCRIT 35 % (33-45); HEMOGLOBIN 11.8 g/dL (11.5-14.8); LYMPHOCYTES # (AUTO) 0.6 /CMM (0.8-4.8); LYMPHOCYTES % (AUTO) 12.7 % (20.0-44.0); MEAN CORPUSCULAR HGB CONC 34 g/dl (31.0-36.0); MEAN CORPUSCULAR VOLUME 87 fL (82-100); MONOCYTES # (AUTO) 0.6 /CMM (0.1-1.30); MONOCYTES % (AUTO) 12.3 % (2.0-12.0); NEUTROPHILS # (AUTO) 3.2 /CMM (1.8-8.9); NEUTROPHILS % (AUTO) 70.9 % (43.0-81.0); PLATELET COUNT (AUTO) 143 /CMM (150-450); RED BLOOD CELL COUNT(AUTO) 4.03 MIL/uL (4.0-5.2); WHITE BLOOD COUNT (AUTO) 4.6 K/uL (4.3-11.0)
[2020-07-02 07:18] LABS: CALCIUM, SERUM 8.8 mg/dL (8.5-10.1); CREATININE 0.6 mg/dL (0.6-1.3); MAGNESIUM 1.8 mg/dL (1.8-2.4); PHOSPHORUS 3.8 mg/dL (2.5-4.9); POTASSIUM 4.3 mmol/L (3.5-5.1)
[2020-07-02 07:45] LABS: THYROID STIMULATING HORMONE 4.983 uIU/mL (0.358-3.74)
[2020-07-02 08:00] VITALS: BP 154/82
[2020-07-02] MEDS: METFORMIN 500 MG TABLET PO SCH ×2 (09:09→18:07)
[2020-07-02] MEDS: BLOOD SUGAR DIAGNOSTIC 1 EACH STRIP IN SCH ×3 (09:09→18:08)
[2020-07-02] MEDS: LEVOTHYROXINE SODIUM 50 MCG TABLET PO SCH (09:10)
[2020-07-02] MEDS: LOSARTAN POTASSIUM 50 MG TABLET PO SCH (09:10)
[2020-07-02] MEDS: glipiZIDE 5 MG TABLET PO SCH ×2 (09:10→18:07)
[2020-07-02] MEDS: AMLODIPINE BESYLATE 10 MG TABLET PO SCH (09:10)
[2020-07-02] MEDS: BENZTROPINE MESYLATE (1 MG) 1 MG TABLET PO SCH ×2 (09:11→18:07)
[2020-07-02] MEDS: ASPIRIN EC 81 MG TABLET.DR PO SCH (09:11)
[2020-07-02] MEDS: risperiDONE 1 MG TABLET PO SCH ×3 (09:11→19:57)
[2020-07-02] MEDS: INSULIN REGULAR, HUMAN 100 UNIT/ML 3 ML VIAL SQ PRN ×3 (09:14→17:24)
--- NOTE | 2020-07-02 11:00 | NUR ---
RN-CO: Patient was seen by Dr Rao , made her aware that Na level is 129 . stated that she refer the case to Dr Gatica to see the level. And if Dr Gatica clears the patient , she is ready to be discharge.
--- NOTE | 2020-07-02 13:02 | NUR ---
Discharge Note: Pt was discharged to [facility] (SNF) located at [address] [place] [address], . Pt was transported via [facility] at 1200. Pts sister, Marta Fernandez ([phone]), was made aware of the discharge. Upon discharge, the pt appeared to be in a euthymic mood and presented with a calm affect. Pt denied both suicidal and homicidal ideation as well as auditory and visual hallucinations. Pt appeared to be disheveled and ungroomed. Pt appeared to be ambulatory with an unsteady gait. Pt will be under the care of his psychiatrist, Dr. Bradley, [place] [address] [place] [address]; and vp product marketing, Dr. Urrutia, located at [address], [address], [place] [address]; .
--- NOTE | 2020-07-02 13:15 | NUR ---
RN-CO: no acute issues reported, awaiting DC home pending neurology and renal clearance. PER DR MCMILLAN. Addendum: 07/02/20 at 1316 by ASIA CASH RN MJCO: AWAITING D/C SNF.
[2020-07-02] MEDS: LINAGLIPTIN 5 MG TABLET PO SCH (13:59)
[2020-07-02] MEDS: LORAZEPAM 0.5 MG TABLET PO PRN (15:30)
--- NOTE | 2020-07-02 15:31 | NUR ---
RN-CO: ATIVAN 0.5 MG PO FOR SEVERE ANXIETY.
[2020-07-02 16:00] VITALS: BP 129/65
--- NOTE | 2020-07-02 18:00 | NUR ---
REPORT CALLED TO FACILITY,REFUSED DISCHARGE PHOTOS.AWAITING ARRIVAL OF AMBULANCE.
[2020-07-02 19:49] VITALS: BP 132/70
--- NOTE | 2020-07-02 20:57 | NUR ---
RN NOTES : DISCHARGE NOTES PT. DISCHARGED TO THE [facility] PER MD ORDERS, PT. PICKED UP BY AMBULANCE 2 EMT'S , PT. LEFT IN STABLE CONDITION , NO ACUTE DISTRESS NOTED UPON DISCHARGE, VITAL SIGNS WNL , ALL BELONGINS AND DISCHARGE PAPERS WAS GIVEN TO THE PATIENT. PT VERBALIZED UNDERSTANDING ,PT. A/O 2 BUT CONFUSED AT TIMES , DENIES SI / HI AT THIS TIME. CALLED TO FAMILY MEMEBR REGARDING ABUOT PT. DISCHARGE TO [facility] AND LEFT MESSAGE .
== END 2020-07-02 21:30 | DRG 885 ==
LOC: GPS 08:22
PROVIDERS: ADMIT Psychiatry & Neurology Psychiatry; ATTEND Student in an Organized Health Care Education/Training Program
DX: F25.0 Schizoaffective disorder, bipolar type (principal); E22.2 Syndrome of inappropriate secretion of antidiuretic hormone; I10 Essential (primary) hypertension; E03.9 Hypothyroidism, unspecified; Z91.14 Patient's other noncompliance with medication regimen; Z73.6 Limitation of activities due to disability; E83.42 Hypomagnesemia; I67.2 Cerebral atherosclerosis; F29 Unspecified psychosis not due to a substance or known physiological condition; E11.65 Type 2 diabetes mellitus with hyperglycemia
CPT/HCPCS: 36415; 70450-TC; 80048-TC; 80053-TC; 80061-TC; 80076-TC; 80164-TC; 82533; 82962-TC; 83735-TC; 84100-TC; 84439-TC; 84443-TC; 84484-TC; 84550-TC; 85025-TC; 87081-TC; 93307-TC; 95819-TC; 97116-TC; J1815; J3475; J8597

== ENCOUNTER 2023-01-25 19:33 | Inpatient (IN) | payer MEDICARE, OTHER ==
[~2023-01-25] VITALS: Ht 160 cm; Wt 66.2 kg
[~2023-01-25 19:33] MED LIST: AMLO-213 PO; ASPI-1420 PO; BENZ0.5T43 PO; CHOL100043 PO; CLON1TAB12 PO; DICL100G34 TP; DIVA-78 PO; GLIP5TAB13 PO; IRBE150T28 PO; LEVO88TA5 PO; MECL-182 PO; METF-442 PO; MIRT-90 PO; RISP3TAB61 PO; SITA100T PO
--- NOTE | 2023-01-25 21:05 | NUR ---
COVID ANTIGEN SWAB COLLECTED AND SENT TO LAB
--- NOTE | 2023-01-25 21:09 | NUR ---
CONTACT FINGER ASSEMBLER AT PT'S BEDSIDE
[2023-01-25 21:18] LABS: BASOPHILS % (AUTO) 0.6 % (0.0-2.0); EOSINOPHILS % (AUTO) 2.1 % (0.0-6.0); HEMATOCRIT 35 % (33-45); HEMOGLOBIN 11.7 g/dL (11.5-14.8); LYMPHOCYTES # (AUTO) 1.1 K/uL (0.8-4.8); LYMPHOCYTES % (AUTO) 21.7 % (20.0-44.0); MEAN CORPUSCULAR HGB CONC 33 g/dl (31.0-36.0); MEAN CORPUSCULAR VOLUME 90 fL (82-100); MONOCYTES # (AUTO) 0.6 K/uL (0.1-1.30); MONOCYTES % (AUTO) 11.9 % (2.0-12.0); NEUTROPHILS # (AUTO) 3.3 K/uL (1.8-8.9); NEUTROPHILS % (AUTO) 63.7 % (43.0-81.0); PLATELET COUNT (AUTO) 103 K/uL (150-450); RED BLOOD CELL COUNT(AUTO) 3.94 MIL/uL (4.0-5.2); WHITE BLOOD COUNT (AUTO) 5.2 K/uL (4.3-11.0)
[2023-01-25 21:34] LABS: CALCIUM, SERUM 9.3 mg/dL (8.5-10.1); CARBON DIOXIDE 27 mmol/L (21-32); CHLORIDE 98 mmol/L (98-107); CREATININE 0.9 mg/dL (0.6-1.3); GLUCOSE 183 mg/dL (74-106); POTASSIUM 4.7 mmol/L (3.5-5.1); SODIUM SERUM 132 mmol/L (136-145); UREA NITROGEN, BLOOD 16 mg/dL (7-18)
[2023-01-25 21:42] LABS: ALANINE AMINOTRANSFERASE 32 U/L (12-78); ALBUMIN 3.6 g/dL (3.4-5.0); ALKALINE PHOSPHATASE 62 U/L (46-116); ASPARTATE AMINOTRANSFERASE 30 U/L (15-37); BILIRUBIN,DIRECT 0.1 mg/dL (0.0-0.2); BILIRUBIN,TOTAL 0.2 mg/dL (0.2-1.0); TOTAL PROTEIN, SERUM 7.3 g/dL (6.4-8.2)
[2023-01-25 21:48] LABS: ACETAMINOPHEN < 10 ug/ml (10-30); ALCOHOL, BLOOD < 3 mg/dL (0-0)
[2023-01-25 21:56] LABS: BILIRUBIN,URINE NEGATIVE (NEGATIVE); COLOR,URINE YELLOW (YELLOW); LEUKOCYTE ESTERASE ,URINE 1+ (NEGATIVE); NITRITE, URINE NEGATIVE (NEGATIVE); PH,URINE 6.5 (5.0-8.0); PROTEIN,URINE NEGATIVE (NEGATIVE); UGLUCOSE TRACE mg/dL (NEGATIVE); UROBILINOGEN,URINE 0.2 EU/dL (0.2)
--- NOTE | 2023-01-25 22:36 | NUR ---
CALLED ART FOR TONYA RECINOS, NO ANSWER.
[2023-01-25 23:20] LABS: BACTERIA,URINE Rare /HPF (None Seen); MUCUS,URINE Moderate /LPF (None Seen); SQUAMOUS EPITHELIAL CELL,UR Rare /HPF (None Seen)
--- NOTE | 2023-01-25 23:44 | NUR ---
ART PAGED FOR PSYCH EVAL
[2023-01-26] MEDS ORDERED: LEVOFLOXACIN (250MG) 250 MG TABLET PO SCH
--- NOTE | 2023-01-26 00:50 | NUR ---
ART CRISIS TEAM AT PT'S BEDSIDE FOR EVAL
--- NOTE | 2023-01-26 01:18 | NUR ---
REPORT GIVEN TO BRANDONI GPS NURSE
[2023-01-26] MEDS ORDERED: LEVOFLOXACIN (500MG) 500 MG TABLET ONE (01:19)
--- NOTE | 2023-01-26 01:41 | NUR ---
TRANSFERRED TO ROOM VIA ACLS PROTOCOL
--- NOTE | 2023-01-26 01:45 | NUR ---
CRAFT CENTER DIRECTOR NOTES ADMITTED A 72 YEAR OLD FEMALE FROM [facility] AND EVALUATED FROM [facility]. PATIENT IS ON 5150 HOLD. ON 5150 HOLD GD AT 1247 AM. PATIENT IS BROUGHT FOR EVALUATION D/T REFUSING CARE , AGITATION AND ARGUMENT WITH STAFF AND DANGER TO OTHERS. PATIENT CAME FROM ER AT O145 AM . PATIENT ADMITTING DIAGNOSIS IS PSYCHOSIS NOS. PATIENT'S [id number] DIAGNOSIS IS BIPOLAR, DIABETES, HYPERTENSION, HYPOTHYROIDISM, SCHIZOPHRENIA, ANXIETY, COGNITIVE DEFICIT.UPON FACE TO FACE EVALUATION, PATIENT APPEARED ALERT AND ORIENTED TIMES 3 . AMBULATORY. ABLE TO MAKE NEEDS KNOWN IN LUXEMBOURGISH LANGUAGE. PATIENT IS CALM BUT ANXIOUS OF BEING IN THE PSYCHE UNIT. NO AGITATION AT THIS TIME. HEAD TO TOE ASSESSMENT DONE. NO PAIN NOTED. IRONWORKER SOB NOTED. NO DISTRESS NOTED. BREATHING EVEN AND UNLABORED. PATIENT IS UNDER CARE OF DR BARAJAS AND DR JOLLY. BELONGINGS COLLECTED FOR CONTRABAND CHECK. KEPT PATIENT CLEAN AND DRY. ALL NEEDS ATTENDED. OVERALL SKIN CHECKS DONE. BRUISE NOTED ON THE RIGHT LOWER BACK. PHOTO TAKEN AND IN THE CHART. WILL MONITOR FOR CHANGES. ALL SAFETY MEASURES IN PLACE. BED LOCKED IN THE LOWEST POSITION. SIDE RAILS UP TIMES 2. TABLE IN EASY REACH. WILL CONTINUE TO MONITOR CLOSELY.
[2023-01-26] MEDS ORDERED: ACETAMINOPHEN 325 MG TABLET PO PRN (02:00)
[2023-01-26] MEDS ORDERED: MAG HYDROX/AL HYDROX/SIMETH 30 ML UDC PO PRN (02:00)
[2023-01-26] MEDS ORDERED: MAGNESIUM HYDROXIDE 30 ML UDC PO PRN (02:00)
[2023-01-26] MEDS ORDERED: BLOOD SUGAR DIAGNOSTIC 1 EACH STRIP IN ONE (02:00)
[2023-01-26] MEDS ORDERED: LORAZEPAM 0.5 MG TABLET PO PRN (02:00)
--- NOTE | 2023-01-26 02:00 | NUR ---
RN NOTES CHECKED BLOOD SUGAR FOR 0200 NOTED THE RESULT OF 167. WILL ENDORSE MORNING SHIFT FOR FOLLOW UP OF NEEDED INSULIN.
[2023-01-26 02:54] VITALS: BP 164/99
--- NOTE | 2023-01-26 06:31 | NUR ---
TOI NOTES CHECKED BLOOD SUGAR FOR 729 NOTED 167. MORNING SHIFT WILL FOLLOW UP FOR INSULIN ORDER IF NEEDED. Addendum: 01/26/23 at 0637 by APRIL MAHARAJ RN BLOOD SUGAR FOR 729 WAS 133. THIS IS THE CORRECT RESULT.
--- NOTE | 2023-01-26 06:32 | NUR ---
RN NOTES PATIENT AWAKE IN BED. A/O TIMES 3. NO PAIN , NO SOB NO DISTRESS NOTED. ALL NEEDS ATTENDED. ALL SAFETY MEASURES IN PLACE. COMPLIANT. WILL ENDORSE INCOMING SHIFT NURSE FOR KOMAL.
[2023-01-26 07:05] LABS: CREATININE 0.8 mg/dL (0.6-1.3)
--- NOTE | 2023-01-26 07:30 | NUR ---
RN NOTES CALLED BYRON DIAZ WITH PHONE NUMBER [phone] AND LEFT MASSAGE FOR HER PER PATIENT'S REQUEST AT 0725 AM.
[2023-01-26 08:00] VITALS: BP 159/96
[2023-01-26] MEDS: LEVOTHYROXINE SODIUM 88 MCG TABLET PO SCH (08:13)
[2023-01-26] MEDS: ASPIRIN EC 81 MG TABLET.DR PO SCH (08:44)
[2023-01-26] MEDS: METFORMIN 500 MG TABLET PO SCH ×2 (08:44→16:57)
[2023-01-26] MEDS: AMLODIPINE BESYLATE 10 MG TABLET PO SCH (08:45)
[2023-01-26] MEDS: LOSARTAN POTASSIUM 50 MG TABLET PO SCH (08:45)
--- NOTE | 2023-01-26 08:53 | NUR ---
JUNAID Clinical Note: Pt placed on a 5150 hold for GD. Pt was aggressive at her facility. Pt currently resides at [facility] Address: [address] [place] [address]; . JUNAID reached to Goyo ([phone]) bait packer to see if pt is welcomed back. Goyo will discuss with treatment team and will let this policy writer sales know. JUNAID will contact sister Leni ([phone]) to discuss treatment/discharge plan. JUNAID will work with the MD, family, and treatment team.
--- NOTE | 2023-01-26 08:53 | NUR ---
Treatment Plan: Pt was paranoid and suspicious. She refused to sign.
--- NOTE | 2023-01-26 08:53 | NUR ---
JUNAID Initial Discharge Note: Pt currently resides at [facility] Address: [address] [facility], [place] [address]; . JUNAID reached to Goyo ([phone]) wellness program coordinator to see if pt is welcomed back. Goyo will discuss with treatment team and will let this sports book writer know. JUNAID will contact sister Leni ([phone]) to discuss treatment/discharge plan. JUNAID will work with the MD, family, and treatment team.
[2023-01-26] MEDS: DICLOFENAC TOPICAL 100 GM TUBE TP SCH ×2 (09:00→13:00)
--- NOTE | 2023-01-26 10:23 | NUR ---
JUNAID Family Contact: JUNAID contacted pt's sister Leni ([phone]) to discuss treatment/discharge plan. SW left a detailed voicemail.
[2023-01-26] MEDS: BENZTROPINE MESYLATE (1 MG) 1 MG TABLET PO SCH ×3 (11:49→16:57)
[2023-01-26] MEDS: DIVALPROEX SODIUM 250 MG TABLET.DR PO SCH ×2 (12:08→16:57)
[2023-01-26] MEDS: risperiDONE 1 MG TABLET PO SCH ×2 (12:09→20:58)
[2023-01-26 16:00] VITALS: BP 141/86
[2023-01-26] MEDS ORDERED: DICLOFENAC TOPICAL 100 GM TUBE TP PRN (16:10)
[2023-01-26 20:21] VITALS: BP 144/78
[2023-01-26] MEDS: LEVOFLOXACIN (250MG) 250 MG TABLET PO SCH (20:58)
[2023-01-26] MEDS: MIRTAZAPINE 15 MG TABLET PO SCH (21:52)
--- NOTE | 2023-01-27 01:03 | NUR ---
RN notes Pt is complaining of back pain and requesting med. administered tylenol/po/prn as ordered. safety precautions is maintained. will continue to monitor.
[2023-01-27 06:55] LABS: CHOLESTEROL 151 mg/dL (<200); HDL CHOLESTEROL 62 mg/dL (40-60); LDL 84 mg/dL (0-99); TRIGLYCERIDES 95 mg/dL (30-150)
[2023-01-27 08:00] VITALS: BP 152/86
[2023-01-27] MEDS: LEVOTHYROXINE SODIUM 88 MCG TABLET PO SCH (08:34)
[2023-01-27] MEDS: ASPIRIN EC 81 MG TABLET.DR PO SCH (08:34)
[2023-01-27] MEDS: risperiDONE 1 MG TABLET PO SCH ×2 (08:34→21:37)
[2023-01-27] MEDS: DIVALPROEX SODIUM 250 MG TABLET.DR PO SCH ×3 (08:34→16:22)
[2023-01-27] MEDS: AMLODIPINE BESYLATE 10 MG TABLET PO SCH (08:35)
[2023-01-27] MEDS: LOSARTAN POTASSIUM 50 MG TABLET PO SCH (08:35)
[2023-01-27] MEDS: BENZTROPINE MESYLATE (1 MG) 1 MG TABLET PO SCH ×2 (08:35→16:22)
[2023-01-27] MEDS: METFORMIN 500 MG TABLET PO SCH ×2 (08:36→16:23)
--- NOTE | 2023-01-27 10:34 | NUR ---
SW Family Contact: SW received a call from pt's sister Gerri ([phone]) who wanted to discuss with the technical proposal writer of pt's treatment/discharge plan. She was unavailable when this technical proposal writer contacted back. This technical proposal writer left a voicemail.
[2023-01-27] MEDS ORDERED: LINA5TAB PO (14:03)
[2023-01-27] MEDS ORDERED: ACET-868 PO (14:03)
[2023-01-27] MEDS ORDERED: LOSA50TA39 PO (14:03)
[2023-01-27] MEDS ORDERED: POLY15DR40 EACHEYE ×2 (14:03)
[2023-01-27] MEDS ORDERED: INSU100V3 SQ (14:03)
[2023-01-27] MEDS ORDERED: DEXT50DI8 IV (14:03)
[2023-01-27] MEDS ORDERED: BENZ1LOZ58 MM (14:03)
[2023-01-27] MEDS ORDERED: DIVA-76 PO (14:03)
[2023-01-27] MEDS ORDERED: GUAI100S11 PO (14:03)
[2023-01-27] MEDS ORDERED: SODI1TAB66 PO (14:03)
[2023-01-27] MEDS ORDERED: MAGN400O6 PO (14:03)
[2023-01-27] MEDS ORDERED: ACET-2605 PO (14:03)
[2023-01-27] MEDS ORDERED: MULT-447 PO (14:03)
[2023-01-27 16:00] VITALS: BP 139/76
--- NOTE | 2023-01-27 18:39 | NUR ---
GPS RN CLOSING NOTE PATIENT SITTING IN BED, BREATHING EVEN AND UNLABORED ON RA WITH NO S/S OF DISTRESS. A/O X 3. PATIENT IS WITHDRAWN, ISOLATIVE, DEPRESSED, AND ANXIOUS. PATIENT IS MED. COMPLIANT. DENIES SI/HI AT THIS TIME. SAFETY PRECAUTIONS IN PLACE. WILL ENDORSE TO ONCOMING NURSE FOR KOMAL.
[2023-01-27 20:00] VITALS: BP 112/43
[2023-01-27] MEDS: MIRTAZAPINE 15 MG TABLET PO SCH (21:37)
[2023-01-27] MEDS: LEVOFLOXACIN (250MG) 250 MG TABLET PO SCH (21:37)
[2023-01-28] MEDS: ZOLPIDEM TARTRATE 5 MG TABLET PO PRN (01:45)
--- NOTE | 2023-01-28 01:45 | NUR ---
RN NOTE PT STATES WANTING SOMETHING TO HELP HER SLEEP. GIVEN AMBIEN PRESCRIBED.
--- NOTE | 2023-01-28 06:42 | NUR ---
GPS RN CLOSING NOTE PATIENT SLEEPING IN BED. STABLE ON RA BREATHING EVEN AND UNLABORED WITH NO S/S OF DISTRESS. A/O X 3. PATIENT IS WITHDRAWN, ISOLATIVE, DEPRESSED, AND ANXIOUS. PATIENT IS MED COMPLIANT. DENIES SI/HI AT THIS TIME. PRN AMBIEN GIVEN PER PT REQUEST. ALL CARE PROVIDED AND MEDS TOLERATED WELL. SAFETY PRECAUTIONS MAINTAINED. WILL ENDORSE TO ONCOMING NURSE FOR KOMAL.
[2023-01-28 08:00] VITALS: BP 143/85
[2023-01-28] MEDS: ASPIRIN EC 81 MG TABLET.DR PO SCH (08:25)
[2023-01-28] MEDS: risperiDONE 1 MG TABLET PO SCH ×2 (08:25→20:44)
[2023-01-28] MEDS: BENZTROPINE MESYLATE (1 MG) 1 MG TABLET PO SCH ×2 (08:25→16:36)
[2023-01-28] MEDS: DIVALPROEX SODIUM 250 MG TABLET.DR PO SCH ×3 (08:25→16:36)
[2023-01-28] MEDS: METFORMIN 500 MG TABLET PO SCH ×2 (08:25→16:36)
[2023-01-28] MEDS: LOSARTAN POTASSIUM 50 MG TABLET PO SCH (08:26)
[2023-01-28] MEDS: AMLODIPINE BESYLATE 10 MG TABLET PO SCH (08:26)
[2023-01-28] MEDS: LEVOTHYROXINE SODIUM 88 MCG TABLET PO SCH (08:26)
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
[2023-01-28 10:00] VITALS: BP 143/85
--- NOTE | 2023-01-28 11:44 | NUR ---
[place] BIOCHEMISTRY TECHNICIAN examined the pt. and ordered CT of abdomen and pelvis without contrast for trauma on right costovertebral hematoma
--- NOTE | 2023-01-28 13:34 | NUR ---
Lidia: JUNAID contacted [facility] ([phone]) and spoke with Lucy who took verbal report and required this typewriter aligner to fill out soc 341 report and fax it ([phone]). JUNAID faxed and placed copy in the chart.
--- NOTE | 2023-01-28 13:38 | NUR ---
JUNAID Family Contact: JUNAID received a call from sister Gerri ([phone]) and she stated she wants to take pt to [place] requesting resources in [place]. JNUAID explained this principal technical writer [facility] in [place] location and if she wanted [place] she would need to do her research. She stated that she will speak to the social media intern at [facility].
[2023-01-28 16:00] VITALS: BP 128/70
--- NOTE | 2023-01-28 17:51 | NUR ---
GPS/RN DICK TECHNICAL SPECIALIST CYTOGENETICS MADE AWARE OF RESULTS OF CT SCAN. NO NEW ORDERS GIVEN.
--- NOTE | 2023-01-28 19:15 | NUR ---
RN notes Pt is resting in bed comfortably. Pt is alert and orientedX3, calm and cooperative. On room air. No SOB. No S/S of distress noted. VS is stable. Pt denies SI/HI at this time. Reality orientation provided. Ambulates with a steady gait. Safety precautions is maintained. Will continue to monitor Q 15 mins checks for safety and behavior.
[2023-01-28 20:00] VITALS: BP 123/61
[2023-01-28] MEDS ORDERED: MAGNESIUM HYDROXIDE 30 ML UDC PO PRN (20:30)
[2023-01-28] MEDS: MIRTAZAPINE 15 MG TABLET PO SCH (20:44)
[2023-01-28] MEDS: LEVOFLOXACIN (250MG) 250 MG TABLET PO SCH (20:44)
[2023-01-28 22:00] VITALS: BP 112/66
[2023-01-29] MEDS: LEVOTHYROXINE SODIUM 88 MCG TABLET PO SCH (06:31)
[2023-01-29 08:00] VITALS: BP 129/67
[2023-01-29] MEDS: DIVALPROEX SODIUM 250 MG TABLET.DR PO SCH ×3 (08:19→16:21)
[2023-01-29] MEDS: ASPIRIN EC 81 MG TABLET.DR PO SCH (08:19)
[2023-01-29] MEDS: SODIUM CHLORIDE 1000 MG TABLET PO SCH (08:19)
[2023-01-29] MEDS: METFORMIN 500 MG TABLET PO SCH ×2 (08:19→16:21)
[2023-01-29] MEDS: LINAGLIPTIN 5 MG TABLET PO SCH (08:20)
[2023-01-29] MEDS: risperiDONE 1 MG TABLET PO SCH ×2 (08:20→21:50)
[2023-01-29] MEDS: BENZTROPINE MESYLATE (1 MG) 1 MG TABLET PO SCH ×2 (08:20→16:21)
[2023-01-29] MEDS: AMLODIPINE BESYLATE 10 MG TABLET PO SCH (08:20)
[2023-01-29] MEDS: LOSARTAN POTASSIUM 50 MG TABLET PO SCH (08:21)
[2023-01-29] MEDS ORDERED: LOSARTAN POTASSIUM 50 MG TABLET PO SCH (09:00)
[2023-01-29] MEDS ORDERED: Medication Not On Formulary EA (Sodium Chloride 1 GM) PO SCH (09:00)
[2023-01-29 10:00] VITALS: BP 129/67
[2023-01-29 16:00] VITALS: BP 118/54
[2023-01-29 20:00] VITALS: BP 144/65
[2023-01-29] MEDS: MIRTAZAPINE 15 MG TABLET PO SCH (21:50)
[2023-01-29] MEDS: LEVOFLOXACIN (250MG) 250 MG TABLET PO SCH (21:50)
[2023-01-29 22:00] VITALS: BP 144/65
--- NOTE | 2023-01-29 22:05 | NUR ---
GPS RN NOTE, PATIENT HAS A COMPLAINT OF A DRY COUGH. PATIENT VITAL SIGNS ARE STABLE. PATIENT LUNGS ARE CLEAR TO AUSCULTATION BILATERALLY. PAGED [facility] AND INFORMED DR JOLLY OF MY FINDINGS. DR JOLLY ORDERED ROBITUSSIN DM 5ML 1 UNIT DOSE PO Q6HR PRN. ALL ORDERS NOTED AND CARRIED OUT. WILL CONTINUE TO MONITOR THIS PATIENT WITH THE HELP OF STAFF.
[2023-01-29] MEDS: GUAIFENESIN/D-METHORPHAN HB 5 ML UDC PO PRN (22:36)
--- NOTE | 2023-01-29 22:37 | NUR ---
RN notes Pt is complaining of coughing. Pt requesting cough medication. Pt refuses to have respiratory assessment (lungs sounds). administered robitussin as ordered for cough. safety precaution is maintained. Will continue to monitor.
[2023-01-30 08:00] VITALS: BP 131/67
[2023-01-30] MEDS: LEVOTHYROXINE SODIUM 88 MCG TABLET PO SCH (08:32)
[2023-01-30] MEDS: LINAGLIPTIN 5 MG TABLET PO SCH (08:52)
[2023-01-30] MEDS: SODIUM CHLORIDE 1000 MG TABLET PO SCH (08:52)
[2023-01-30] MEDS: risperiDONE 1 MG TABLET PO SCH ×2 (08:52→21:50)
[2023-01-30] MEDS: ASPIRIN EC 81 MG TABLET.DR PO SCH (08:53)
[2023-01-30] MEDS: BENZTROPINE MESYLATE (1 MG) 1 MG TABLET PO SCH ×2 (08:53→16:01)
[2023-01-30] MEDS: AMLODIPINE BESYLATE 10 MG TABLET PO SCH (08:54)
[2023-01-30] MEDS: METFORMIN 500 MG TABLET PO SCH ×2 (08:54→16:02)
[2023-01-30] MEDS: LOSARTAN POTASSIUM 50 MG TABLET PO SCH (08:55)
[2023-01-30] MEDS: DIVALPROEX SODIUM 250 MG TABLET.DR PO SCH ×3 (08:55→16:01)
[2023-01-30 10:00] VITALS: BP 131/61
--- NOTE | 2023-01-30 14:32 | NUR ---
NURSE NOTE: PT AGITATED AT THIS TIME. ATTEMPTED TO ADMINISTER ATIVAN, BUT PT REFUSED MULT TIMES. ATIVAN WASTED WITH TOI ELAINE.
[2023-01-30 16:00] VITALS: BP 125/59
--- NOTE | 2023-01-30 18:00 | NUR ---
NURSE NOTE: PT REFUSED BLOOD DRAW. ATTEMPTED TO ENCOURAGE, BUT PT REFUSED EACH TIME.
[2023-01-30 20:24] VITALS: BP 135/69
[2023-01-30] MEDS: GUAIFENESIN/D-METHORPHAN HB 5 ML UDC PO PRN (20:47)
--- NOTE | 2023-01-30 20:48 | NUR ---
RN NOTE PATIENT C/O COUGH, REQUESTED COUGH SYRUP. ROBITUSSIN 5 ML GIVEN ORDERED
[2023-01-30] MEDS: MIRTAZAPINE 15 MG TABLET PO SCH (21:50)
[2023-01-30] MEDS: LEVOFLOXACIN (250MG) 250 MG TABLET PO SCH (21:50)
[2023-01-30 22:35] VITALS: BP 135/69
[2023-01-30] MEDS: ZOLPIDEM TARTRATE 5 MG TABLET PO PRN (23:55)
--- NOTE | 2023-01-30 23:56 | NUR ---
RN NOTE PATIENT UNABLE TO SLEEP, REQUESTED SLEEPING PILL. AMBIEN 5 MG GIVEN ORDERED
--- NOTE | 2023-01-31 01:50 | NUR ---
RN NOTE PATIENT STILL AWAKE DESPITE AMBIEN GIVEN, RESTLESS, FIXATED ON CALLING [employer] AT THIS TIME TO ASK IF HER BELONGINGS ARE IN LOCKER, WORRIED ABOUT WHAT FACILITY SHE'S GOING AFTER THIS, STATES HE SISTER WANTS HER TO GO TO A FACILITY IN [place]. OFFERED PATIENT ATIVAN BUT PATIENT REFUSED. REASSURED PATIENT NOT TO WORRY ABOUT THAT AT THIS TIME AND THAT SHE CAN CALL IN THE AM AND SPEAK TO VENEER SAMPLE MAKER IN THE DAY
--- NOTE | 2023-01-31 06:38 | NUR ---
RN CLOSING NOTE PATIENT SLEEPING IN BED AT THIS TIME, PT ALERT/ORIENTED X 3, PT ABLE TO MAKE NEEDS KNOWN. PATIENT COOPERATIVE BUT NEEDY, ANXIOUS AND RESTLESS AT TIMES. PATIENT FIXATED ON CALLING [facility] IN THE MIDDLE OF THE NIGHT AND ALSO ON FINDING A NEW FACILITY IN [place] NEAR HER SISTER. OFFERED ATIVAN BUT PATIENT REFUSED, WAS ABLE TO CALM PATIENT DOWN AND PATIENT SLEPT WELL THE REST OF THE NIGHT. AMBIEN GIVEN PER PATIENT REQUEST. PATIENT MED COMPLIANT. PATIENT AMBULATORY WITH FWW AND STEADY GAIT. NO SIGNIFICANT CHANGES THIS SHIFT, NO BEHAVIORAL ISSUES. SAFETY MEASURES MAINTAINED. WILL ENDORSE TO DAYSHIFT RN FOR CONTINUITY OF CARE
[2023-01-31] MEDS: LEVOTHYROXINE SODIUM 88 MCG TABLET PO SCH (07:44)
[2023-01-31 08:00] VITALS: BP 145/74
[2023-01-31] MEDS: LOSARTAN POTASSIUM 50 MG TABLET PO SCH (08:38)
[2023-01-31] MEDS: LINAGLIPTIN 5 MG TABLET PO SCH ×2 (08:38→09:00)
[2023-01-31] MEDS: DIVALPROEX SODIUM 250 MG TABLET.DR PO SCH (08:38)
[2023-01-31] MEDS: BENZTROPINE MESYLATE (1 MG) 1 MG TABLET PO SCH (08:38)
[2023-01-31] MEDS: risperiDONE 1 MG TABLET PO SCH (08:38)
[2023-01-31] MEDS: ASPIRIN EC 81 MG TABLET.DR PO SCH (08:38)
[2023-01-31] MEDS: METFORMIN 500 MG TABLET PO SCH (08:39)
[2023-01-31] MEDS: AMLODIPINE BESYLATE 10 MG TABLET PO SCH ×2 (08:39→09:00)
[2023-01-31] MEDS: SODIUM CHLORIDE 1000 MG TABLET PO SCH (08:40)
[2023-01-31 10:00] VITALS: BP 145/74
--- NOTE | 2023-01-31 10:36 | NUR ---
JUNAID Family Contact: SW contacted pt's sister Gerri ([phone]) who stated that she is on her way to see her sister from [place]. She stated that she would want to car pick up driver her sister today. She stated that pt has a place to go to [facility] located [address] [place] [address], [address] Zafar will discharge pt.
--- NOTE | 2023-01-31 10:41 | NUR ---
SW Discharge Note: Patient will be discharged to [facility] located [address], [place] [address], . Patients sister Gerri ([phone]) will chart picker pt at 12PM. Pt is alert and oriented x3. Patient happy to be leaving the hospital. Patient denies suicidal or homicidal ideation. Patient denies visual/auditory hallucinations. Patient was given resources: [facility]; ([phone]), [facility]; ([phone]), [facility]; ([phone]). Patient presents with euthymic and congruent mood.
--- NOTE | 2023-01-31 11:46 | NUR ---
Lidia: JUNAID received a call from Jere ([phone]) stating to cross report to Department of Mental Health ([phone]). Agents were busy and JUNAID left a detailed voicemail.
--- NOTE | 2023-01-31 13:00 | NUR ---
NURSE NOTE: 72 YEAR OLD FEMALE DISCHARGED TO ASSIST LIVING HOME IN [place] WITH SISTER (EMILY) IN STABLE COND. COMPLIANT WITH MEDICATIONS, COOPERATIVE WITH TREATMENT PLANS. PT DENIES SI/HI AND INSTRUCTED TO GO TO THE CLOSEST ER IF DEVELOPING SI/HI. BEHAVIOR IMPROVED, PSYCHIATRIC TX PLANS MET, MEDICAL TX PLANS DEFERRED FOR CONTINUAL MONITORING. DR BARAJAS DISCONTINUED HOLD AND BOTH DR BARAJAS AND LYLE NGUYEN DISCHARGED HOME. PT EDUCATED ABOUT AFTER CARE PLAN AND COPY PROVIDED. RETURNED PERSONAL BELONGINGS TO PT. MEDICATIONS RECONCILED WITH DR BARAJAS AND LYLE NGUYEN, PRESCRIPTION GIVEN TO PT TO BE FILLED PRIOR TO GOING TO [facility]. PT SIGNED DISCHARGE PAPERWORK. PICTURE OF DISCOLORATION TO R LOWER BACK AND PLACED IN CHART. PT LEFT THE UNIT AT 1300 VIA WHEELCHAIR WITH SISTER EMILY. Addendum: 01/31/23 at 1421 by ERNST JEROME RN PT G[facility]
--- NOTE | 2023-02-01 10:50 | NUR ---
Department of Mental Health: JUNAID received a call from [facility] ([phone]) stating that they received the voicemail of the report. She stated that they will be opening a case and revenue investigator will investigate. They stated revenue investigator will contact this marine underwriter if needed.
== END 2023-01-31 13:00 | DRG 885 ==
LOC: ER 19:35 → GPS 01-26 01:11
PROVIDERS: ADMIT Psychiatry & Neurology Psychiatry; ATTEND Nurse Practitioner Family
DX: F31.64 Bipolar disorder, current episode mixed, severe, with psychotic features (principal); N39.0 Urinary tract infection, site not specified; E87.1 Hypo-osmolality and hyponatremia; S32.029A Unspecified fracture of second lumbar vertebra, initial encounter for closed fracture; S32.039A Unspecified fracture of third lumbar vertebra, initial encounter for closed fracture; S22.31XA Fracture of one rib, right side, initial encounter for closed fracture; F29 Unspecified psychosis not due to a substance or known physiological condition; F41.9 Anxiety disorder, unspecified; E03.9 Hypothyroidism, unspecified; E11.9 Type 2 diabetes mellitus without complications; I10 Essential (primary) hypertension; Z79.899 Other long term (current) drug therapy; Z79.84 Long term (current) use of oral hypoglycemic drugs; Z91.81 History of falling; Z90.79 Acquired absence of other genital organ(s); Z98.890 Other specified postprocedural states; Z79.82 Long term (current) use of aspirin; Z73.6 Limitation of activities due to disability; R53.1 Weakness; R27.8 Other lack of coordination; G31.84 Mild cognitive impairment of uncertain or unknown etiology; Z91.199 Patient's noncompliance with other medical treatment and regimen due to unspecified reason; B96.20 Unspecified Escherichia coli [E. coli] as the cause of diseases classified elsewhere; Z91.14 Patient's other noncompliance with medication regimen; S30.0XXA Contusion of lower back and pelvis, initial encounter; X58.XXXA Exposure to other specified factors, initial encounter; Y92.9 Unspecified place or not applicable; Y93.89 Activity, other specified; Y92.129 Unspecified place in nursing home as the place of occurrence of the external cause
CPT/HCPCS: 36415; 80048-TC; 80061-TC; 80076-TC; 80164-TC; 81001; 82565-TC; 82962-TC; 85025-TC; 87086-TC; C9803; G0480